=== PATIENT | female | born 1960 | race Caucasian/White ===

== ENCOUNTER 2020-07-14 08:04 | Emergency (ER) | payer BC ==
[~2020-07-14] VITALS: Ht 165.1 cm; Wt 81.0 kg
[2020-07-14 08:14] VITALS: BP 145/94
--- NOTE | 2020-07-14 08:39 | PHYS DOC ---
Past History Past Medical History: Anxiety, Asthma, Constipation, Depression, GERD, Hypertension Additional Past Medical Histor: chronic insomnia. Past Surgical History: Additional Past Surgical Histo: breast augmentation x2, stomach augementation x1. 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 Reports she has worked the last 9 days in a row working 12-hour shift work. She reports feeling overly fatigued and exhausted having done this numerous times in the past. States she has had poor p.o. 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 Denies any pain or trauma, concerning ingestion or sick contacts. Just admits generalized feelings of fatigue, occasional palpitations, visual disturbances at the end of her shift after looking at a computer screen most of the shift, generalized dizziness without any falls, and feels that her gait is unsteady. Patient has self- reported history of anxiety and well medicated for this, did not take her benzodiazepine for this today. No history of CVA, no motor function sensory changes, no neuro deficits reported Review of Systems Review of Systems Fourteen body systems of review of systems have been reviewed. See HPI for pertinent positives and negative responses, other maldonado all other systems are negative, non-pertinent or non-contributory Physical Exam Physical Exam Constitutional: Well developed, well nourished, no acute distress, non-toxic appearance. HENT: Normocephalic, atraumatic, bilateral external ears normal, oropharynx moist, no oral exudates, nose normal. Eyes: PERRLA, EOMI, conjunctiva normal, no discharge. Neck: Normal range of motion, no tenderness, supple, no stridor. Cardiovascular: Heart rate regular, sinus rhythm, no murmurs rubs or gallops Lungs & Thorax: Bilateral breath sounds clear to auscultation Abdomen: Bowel sounds normal, soft, no tenderness, no masses, no pulsatile masses. Nonsurgical abdomen, no peritoneal signs Skin: Warm, dry, no erythema, no rash. Back: No tenderness, no CVA tenderness. Extremities: No tenderness, no cyanosis, no clubbing, ROM intact, no edema. Neurologic: Alert and oriented X 3, cranial nerves II through XII intact, normal motor & sensory function, no focal deficits noted. Psychologic: Anxious affect and mood Current Patient Data Vital Signs Vital Signs Date Time Temp Pulse Resp B/P (MAP) Pulse Ox O2 Delivery O2 Flow Rate FiO2 07/14/20 08:14 98.1 79 16 145/94 (111) Room Air Lab Results Laboratory Tests Test 07/14/20 08:55 White Blood Count 7.4 x10^3/uL Red Blood Count 4.09 x10^6/uL Hemoglobin 12.6 g/dL Hematocrit 37.8 % Mean Corpuscular Volume 93 fL Mean Corpuscular Hemoglobin 31 pg Mean Corpuscular Hemoglobin Concent 33 g/dL Red Cell Distribution Width 13.9 % Platelet Count 384 x10^3/uL Neutrophils (%) (Auto) 65 % Lymphocytes (%) (Auto) 27 % Monocytes (%) (Auto) 6 % Eosinophils (%) (Auto) 1 % Basophils (%) (Auto) 1 % Neutrophils # (Auto) 4.8 x10^3uL Lymphocytes # (Auto) 2.0 x10^3/uL Monocytes # (Auto) 0.4 x10^3/uL Eosinophils # (Auto) 0.1 x10^3/uL Basophils # (Auto) 0.1 x10^3/uL Sodium Level 140 mmol/L Potassium Level 4.2 mmol/L Chloride Level 104 mmol/L Carbon Dioxide Level 26 mmol/L Anion Gap 10 Blood Urea Nitrogen 11 mg/dL Creatinine 0.8 mg/dL Estimated GFR (Cockcroft-Gault) 73.7 Glucose Level 108 mg/dL Calcium Level 9.8 mg/dL Troponin I Quantitative < 0.017 ng/mL Current Medications Medications (Trade) Dose Ordered Sig/Karma Route PRN Reason Start Time Stop Time Status Last Admin Dose Admin Ondansetron HCl (Zofran) 4 mg 1X ONCE IVP 07/14/20 08:45 07/14/20 09:10 DC 07/14/20 09:06 Sodium Chloride 1,000 ml @ 1,000 mls/hr 1X ONCE IV 07/14/20 08:45 07/14/20 09:44 DC 07/14/20 09:05 EKG EKG EKG ordered and interpreted by myself at 0857 hrs. as sinus rhythm at 72 bpm, prolonged VA at 214 otherwise unremarkable intervals, no axis deviation, no acute ischemic findings, no STEMI Radiology/Procedures Radiology/Procedures EKG ordered and interpreted by myself at 0857 hrs. as sinus rhythm at 72 bpm, prolonged VA at 214 otherwise unremarkable intervals, no axis deviation, no acute ischemic findings, no STEMI Heart Score C/O Chest Pain: No HEART Score for Chest Pain: HEART Score for Chest Pain Response (Comments) Value History Slighlty/Non-Suspicious 0 ECG Normal 0 Age >45 - < 65 1 Risk Factors 1 or 2 Risk Factors 1 Troponin < Normal Limit 0 Total 2 Risk Factors: Risk Factors: DM, Current or recent (<one month) smoker, HTN, HLP, family history of CAD, obesity. Risk Scores: Risk Factors: DM, Current or recent (<one month) smoker, HTN, HLP, family history of CAD, obesity. Course & Med Decision Making Course & Med Decision Making Hemodynamically stable patient with nonconcerning history and physical exam. Comprehensive ER work-up obtained and grossly unremarkable IV fluid rehydration administered with antiemetic with improvement in symptoms. Patient was tolerating p.o. intake and ambulatory prior to end of the ER course Reviewed patient's fatigue at length. Discussed little indication for further diagnostic work-up in ER setting. Discussed it could be vitamin D deficiency versus other nonlife-threatening/emergent processes that should be continued to be investigated with PCP Continued supportive care and good p.o. fluid intake advised. Strict return precautions were discussed with good understanding by patient, all questions and concerns addressed prior to ER departure with new prescription for Zofran Dragon Disclaimer Dragon Disclaimer This electronic medical record was generated, in whole or in part, using a voice recognition dictation system. Departure Departure: Impression: Primary Impression: Fatigue Additional Impression: Dehydration Disposition: 01 DC HOME SELF CARE/HOMELESS Condition: IMPROVED Referrals: PREET BAUER MD (PCP) Patient Instructions: Dehydration, Adult Additional Instructions: As discussed prior to ER departure, your ER work-up was grossly nonconcerning. Your physical exam findings and ER work-up did not show any emergent and/or surgical findings. With that said, I did disclose he might be suffering from other illnesses/pathology such as vitamin D deficiency etc. that will require further diagnostic work-up in outpatient setting. Please continue good water intake by mouth daily. You have been prescribed a new prescription for Zofran to use as needed for nausea. As discussed, if any concerning signs or symptoms present prior to outpatient follow-up please do not hesitate to come back for repeat evaluation. It was a pleasure to take care of you and I wish you the best going forward Scripts Ondansetron Hcl (ZOFRAN) 4 Mg Tablet 1 TAB PO PRN Q6-8HRS for NAUSEA, #15 TAB Prov: AMANDA CRENSHAW DO 07/14/20 Problem Qualifiers AMANDA CRENSHAW DO Jul 14, 2020 08:39
[2020-07-14] MEDS ORDERED: ONDANSETRON PF 4 MG/2 ML VIAL. IVP ONE (08:45)
[2020-07-14] MEDS ORDERED: IV NORMAL SALINE 1,000ML 1,000 ML IV ONE (08:45)
--- NOTE | 2020-07-14 08:56 | EKG ---
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
[2020-07-14 09:31] LABS: CALCIUM 9.8 mg/dL (8.5-10.1); CREATININE 0.8 mg/dL (0.6-1.0); GFR 73.7; POTASSIUM 4.2 mmol/L (3.5-5.1)
[2020-07-14 09:32] LABS: BASO # 0.1 x10^3/uL (0.0-0.2); BASO % 1 % (0-3); EOS # 0.1 x10^3/uL (0.0-0.7); EOS % 1 % (0-3); HEMATOCRIT 37.8 % (36.0-47.0); HEMOGLOBIN 12.6 g/dL (12.0-15.5); LYMPH % 27 % (24-48); MEAN CORPUSCULAR HEMOGLOBIN 31 pg (25-35); MEAN CORPUSCULAR HGB CONC 33 g/dL (31-37); MEAN CORPUSCULAR VOLUME 93 fL (79-100); MONO # 0.4 x10^3/uL (0.0-1.1); MONO % 6 % (0-9); NEUT # 4.8 x10^3uL (1.8-7.7); NEUT % 65 % (31-73); PLATELET COUNT 384 x10^3/uL (140-400); RED BLOOD COUNT 4.09 x10^6/uL (3.50-5.40); RED CELL DISTRIBUTION WIDTH 13.9 % (11.5-14.5); WHITE BLOOD COUNT 7.4 x10^3/uL (4.0-11.0)
[2020-07-14] MEDS ORDERED: ONDA4TAB7 PO (09:53)
== END 2020-07-14 10:03 | disposition home or self-care (01) ==
LOC: ER 08:04
DX: E86.0 Dehydration (principal); R42 Dizziness and giddiness; H53.8 Other visual disturbances; R00.2 Palpitations; F41.9 Anxiety disorder, unspecified; J45.909 Unspecified asthma, uncomplicated; F32.9 Major depressive disorder, single episode, unspecified; K21.9 Gastro-esophageal reflux disease without esophagitis; I10 Essential (primary) hypertension; Z98.890 Other specified postprocedural states
CPT/HCPCS: 36415; 80048; 84484; 85025; 93005; 96361; 96374; 99284; J2405; J7030